=== PATIENT | male | born 1945 | race Caucasian/White ===

== ENCOUNTER 2019-05-27 00:13 | Inpatient (IN) ==
[2019-05-27] MEDS ORDERED: Naloxone 0.4 MG/ML INJ IVP PRN (04:54)
[2019-05-27] MEDS ORDERED: *HR* Dextrose 50 % in Water (Syg) 50 ML SYRINGE IVP PRN (04:56)
[2019-05-27] MEDS ORDERED: Dextrose Gel 15 GM/37.5 ML TUBE PO PRN ×2 (04:56)
[2019-05-27] MEDS ORDERED: D5% in Water 1,000 ML IVC PRN (04:56)
[2019-05-27] MEDS ORDERED: *HR* Heparin 5,000 UNIT/ML VIAL IVP PRN ×2 (05:42)
[2019-05-27] MEDS: Insulin LISPRO 300 UNITS/3 ML VIAL SQ SCH ×3 (06:23→17:22)
[2019-05-27] MEDS: Heparin 25,000 UNIT/250 ML D5W 25,000 UNIT/250 ML IV.SOLN IVC SCH (06:30)
[2019-05-27 06:35] LABS: Hematocrit 48.6 % (37.5-50.1); Mean Corpuscular HGB Conc 32.9 g/dL (31.6-35.5); Mean Corpuscular Hemoglobin 29.1 pg (28.0-33.3); Mean Corpuscular Volume 88.4 fL (83.0-100.0); Mean Platelet Volume 12.1 fL (9.4-12.4); Platelet Count 218 K/mcL (140-400); Red Cell Distribution Width 13.2 % (11.5-14.5)
[2019-05-27 06:55] LABS: BUN/Creatinine Ratio 18 (6-26); Blood Urea Nitrogen 22 mg/dL (8-23); Calcium 9.3 mg/dL (8.6-10.3); Carbon Dioxide 26 mEq/L (23-29); Chloride 95 mEq/L (98-107); Glucose 278 mg/dL (70-105); Osmolality,Calculated 297 (280-300); Potassium 4.3 mEq/L (3.5-5.1); Sodium 137 mEq/L (136-145); eGFR For African Americans > 60 (> 60); eGFR For Non-African Americans 59 (> 60)
[2019-05-27] MEDS ORDERED: Albuterol 2.5 MG/3 ML NEBULIZER IH PRN (07:29)
[2019-05-27] MEDS: Furosemide 40 MG/4 ML VIAL IVP SCH (08:15)
[2019-05-27 09:55] LABS: Heparin anti-factor XA UFH 0.11 IU/mL (0.30-0.70)
[2019-05-27 09:56] LABS: INR 1.1; Prothrombin Time 12.4 Seconds (9.4-12.1)
[2019-05-27] MEDS: Ipratropium/Albuterol Neb 3 ML IH SCH ×3 (10:51→22:57)
[2019-05-27] MEDS ORDERED: Insulin LISPRO 300 UNITS/3 ML VIAL SQ SCH (14:02)
[2019-05-27] MEDS ORDERED: Perflutren Lipid Microsphere 1.3 ML in 0.9 % Sodium Chloride 8.7 ML IVP ONE ×2 (14:11→17:18)
[2019-05-27 14:38] LABS: Adenovirus Not Detected (Not Detect); Coronavirus 229E Not Detected (Not Detect); Coronavirus HKU1 Not Detected (Not Detect); Coronavirus NL63 Not Detected (Not Detect); Coronavirus OC43 Not Detected (Not Detect); Human Metapneumovirus Not Detected (Not Detect); Human Rhinovirus/Enterovirus Not Detected (Not Detect)
[2019-05-27 14:40] LABS: Bordetella Pertussis Not Detected (Not Detect); Chlamydophila pneumoniae Not Detected (Not Detect); Influenza B Not Detected (Not Detect); Mycoplasma pneumoniae Not Detected (Not Detect); Parainfluenza Virus 1 Not Detected (Not Detect); Parainfluenza Virus 2 Not Detected (Not Detect); Parainfluenza Virus 3 Not Detected (Not Detect); Parainfluenza Virus 4 Not Detected (Not Detect); Respiratory Syncytial Virus Not Detected (Not Detect)
[2019-05-27] MEDS: Aspirin 81 MG TAB.CHEW PO SCH (15:16)
[2019-05-27 18:17] LABS: ABG Base Excess 5 mEq/L (-2 to 3); ABG HCO3 31 mEq/L (21-27); ABG Oxygen Saturation 91 % (95-98); ABG PCO2 51 mmHg (35-45); ABG PO2 63 mmHg (85-104); ABG TCO2 33 mEq/L (20-26)
[2019-05-27] MEDS ORDERED: Insulin DETEMIR 100 UNIT/ML X5UNITS SQ SCH (21:00)
[2019-05-28 01:33] LABS: Basophils % 0.3 %; Eosinophils % 0.3 %; Hematocrit 48.7 % (37.5-50.1); Hemoglobin 15.8 g/dL (12.9-16.9); Immature Granulocytes % 0.4 % (0-4); Lymphocytes # 1.3 K/mcL (0.6-4.6); Lymphocytes % 10.2 %; Mean Corpuscular HGB Conc 32.4 g/dL (31.6-35.5); Mean Corpuscular Hemoglobin 29.4 pg (28.0-33.3); Mean Corpuscular Volume 90.5 fL (83.0-100.0); Mean Platelet Volume 11.5 fL (9.4-12.4); Monocytes # 1.1 K/mcL (0.0-1.3); Monocytes % 8.7 %; Neutrophils # 10.4 K/mcL (1.6-8.9); Platelet Count 195 K/mcL (140-400); Red Blood Count 5.38 M/mcL (4.19-5.50); Red Cell Distribution Width 13.1 % (11.5-14.5); Segmented Neutrophils % 80.1 %; White Blood Count 12.9 K/mcL (4.3-11.1)
[2019-05-28 01:46] LABS: Chol/HDL Ratio 3.3 (0-4.9); Magnesium 1.5 mg/dL (1.6-2.6); Potassium 3.7 mEq/L (3.5-5.1)
[2019-05-28 01:47] LABS: Alanine Aminotransferase 13 Units/L (7-52); Albumin 3.8 g/dL (3.5-5.7); Albumin/Globulin Ratio 1.2 (1.1-2.2); Alkaline Phosphatase 85 Units/L (34-104); Aspartate Amino Transferase 38 Units/L (13-39); BUN/Creatinine Ratio 22 (6-26); Bilirubin,Total 0.7 mg/dL (0.3-1.0); Blood Urea Nitrogen 26 mg/dL (8-23); Calcium 9.1 mg/dL (8.6-10.3); Carbon Dioxide 27 mEq/L (23-29); Chloride 97 mEq/L (98-107); Globulin 3.2 g/dL (2.4-3.5); Glucose 140 mg/dL (70-105); Osmolality,Calculated 287 (280-300); Potassium 3.6 mEq/L (3.5-5.1); Sodium 135 mEq/L (136-145); eGFR For African Americans > 60 (> 60); eGFR For Non-African Americans 60 (> 60)
[2019-05-28] MEDS: Ipratropium/Albuterol Neb 3 ML IH SCH ×4 (03:42→23:21)
[2019-05-28] MEDS: Heparin 25,000 UNIT/250 ML D5W 25,000 UNIT/250 ML IV.SOLN IVC SCH (04:27)
[2019-05-28] MEDS: Insulin LISPRO 300 UNITS/3 ML VIAL SQ SCH ×3 (08:02→17:51)
[2019-05-28] MEDS: Aspirin 81 MG TAB.CHEW PO SCH (09:17)
[2019-05-28] MEDS: Furosemide 40 MG/4 ML VIAL IVP SCH (09:17)
[2019-05-28 11:48] LABS: Influenza A Subtype 2009 H1 DETECTED (Not Detect)
[2019-05-28 15:54] LABS: ABG Base Excess 5 mEq/L (-2 to 3); ABG HCO3 30 mEq/L (21-27); ABG Oxygen Saturation 96 % (95-98); ABG PCO2 47 mmHg (35-45); ABG PH 7.42 pH Units (7.32-7.45); ABG PO2 81 mmHg (85-104); ABG TCO2 32 mEq/L (20-26)
[2019-05-28] MEDS ORDERED: Insulin DETEMIR 100 UNIT/ML X5UNITS SQ SCH (21:00)
[2019-05-29 00:24] LABS: Basophils % 0.3 %; Eosinophils % 0.4 %; Hematocrit 45.5 % (37.5-50.1); Hemoglobin 14.7 g/dL (12.9-16.9); Immature Granulocytes % 0.5 % (0-4); Lymphocytes # 1.3 K/mcL (0.6-4.6); Lymphocytes % 16.7 %; Mean Corpuscular HGB Conc 32.3 g/dL (31.6-35.5); Mean Corpuscular Hemoglobin 29.5 pg (28.0-33.3); Mean Corpuscular Volume 91.2 fL (83.0-100.0); Mean Platelet Volume 10.8 fL (9.4-12.4); Monocytes # 0.7 K/mcL (0.0-1.3); Monocytes % 9.6 %; Neutrophils # 5.5 K/mcL (1.6-8.9); Platelet Count 174 K/mcL (140-400); Red Blood Count 4.99 M/mcL (4.19-5.50); Red Cell Distribution Width 12.9 % (11.5-14.5); Segmented Neutrophils % 72.5 %; White Blood Count 7.6 K/mcL (4.3-11.1)
[2019-05-29 00:41] LABS: BUN/Creatinine Ratio 26 (6-26); Blood Urea Nitrogen 27 mg/dL (8-23); Calcium 8.7 mg/dL (8.6-10.3); Carbon Dioxide 28 mEq/L (23-29); Chloride 98 mEq/L (98-107); Glucose 265 mg/dL (70-105); Osmolality,Calculated 290 (280-300); Potassium 3.8 mEq/L (3.5-5.1); Sodium 133 mEq/L (136-145); eGFR For African Americans > 60 (> 60); eGFR For Non-African Americans > 60 (> 60)
[2019-05-29] MEDS: Ipratropium/Albuterol Neb 3 ML IH SCH ×4 (03:59→22:02)
[2019-05-29] MEDS: Insulin LISPRO 300 UNITS/3 ML VIAL SQ SCH ×3 (08:33→16:25)
[2019-05-29] MEDS: Furosemide 40 MG/4 ML VIAL IVP SCH (08:33)
[2019-05-29] MEDS: Aspirin 81 MG TAB.CHEW PO SCH (08:33)
[2019-05-29] MEDS: Famotidine 20 MG TABLET PO SCH (08:33)
[2019-05-29] MEDS: Heparin 25,000 UNIT/250 ML D5W 25,000 UNIT/250 ML IV.SOLN IVC SCH (16:26)
[2019-05-29] MEDS: Insulin DETEMIR 100 UNIT/ML X5UNITS SQ SCH (22:28)
[2019-05-30 02:23] LABS: Basophils # 0.1 K/mcL (0.0-0.2); Basophils % 0.8 %; Eosinophils # 0.1 K/mcL (0.0-0.6); Eosinophils % 1.1 %; Hematocrit 45.8 % (37.5-50.1); Immature Granulocytes % 1.3 % (0-4); Lymphocytes % 30.6 %; Mean Corpuscular HGB Conc 32.8 g/dL (31.6-35.5); Mean Corpuscular Hemoglobin 29.5 pg (28.0-33.3); Mean Corpuscular Volume 90.2 fL (83.0-100.0); Mean Platelet Volume 10.5 fL (9.4-12.4); Monocytes # 0.8 K/mcL (0.0-1.3); Monocytes % 11.9 %; Neutrophils # 3.5 K/mcL (1.6-8.9); Platelet Count 210 K/mcL (140-400); Red Blood Count 5.08 M/mcL (4.19-5.50); Red Cell Distribution Width 12.7 % (11.5-14.5); Segmented Neutrophils % 54.3 %; White Blood Count 6.4 K/mcL (4.3-11.1)
[2019-05-30 02:44] LABS: Alanine Aminotransferase 19 Units/L (7-52); Albumin 3.6 g/dL (3.5-5.7); Albumin/Globulin Ratio 1.2 (1.1-2.2); Alkaline Phosphatase 83 Units/L (34-104); Aspartate Amino Transferase 36 Units/L (13-39); BUN/Creatinine Ratio 21 (6-26); Bilirubin,Total 0.6 mg/dL (0.3-1.0); Blood Urea Nitrogen 22 mg/dL (8-23); Calcium 8.9 mg/dL (8.6-10.3); Carbon Dioxide 30 mEq/L (23-29); Chloride 98 mEq/L (98-107); Globulin 3.1 g/dL (2.4-3.5); Glucose 177 mg/dL (70-105); Osmolality,Calculated 290 (280-300); Potassium 3.5 mEq/L (3.5-5.1); Sodium 136 mEq/L (136-145); Total Protein 6.7 g/dL (6.4-8.9); eGFR For African Americans > 60 (> 60); eGFR For Non-African Americans > 60 (> 60)
[2019-05-30] MEDS: Ipratropium/Albuterol Neb 3 ML IH SCH ×4 (03:41→22:26)
[2019-05-30] MEDS: Insulin LISPRO 300 UNITS/3 ML VIAL SQ SCH ×3 (09:09→17:37)
[2019-05-30] MEDS: Furosemide 40 MG/4 ML VIAL IVP SCH ×2 (09:25→21:53)
[2019-05-30] MEDS: Aspirin 81 MG TAB.CHEW PO SCH (09:25)
[2019-05-30] MEDS: Famotidine 20 MG TABLET PO SCH (09:25)
[2019-05-30] MEDS: Heparin 25,000 UNIT/250 ML D5W 25,000 UNIT/250 ML IV.SOLN IVC SCH (11:28)
[2019-05-30] MEDS: Insulin DETEMIR 100 UNIT/ML X5UNITS SQ SCH (21:53)
[2019-05-31] MEDS ORDERED: Ipratropium/Albuterol Neb 3 ML ONE (04:11)
[2019-05-31] MEDS: Ipratropium/Albuterol Neb 3 ML IH SCH ×4 (04:13→22:52)
[2019-05-31] MEDS: Heparin 25,000 UNIT/250 ML D5W 25,000 UNIT/250 ML IV.SOLN IVC SCH ×2 (04:20→18:26)
[2019-05-31 07:35] LABS: Basophils # 0.1 K/mcL (0.0-0.2); Basophils % 0.8 %; Eosinophils # 0.1 K/mcL (0.0-0.6); Hemoglobin 15.7 g/dL (12.9-16.9); Immature Granulocytes % 1.6 % (0-4); Lymphocytes # 1.9 K/mcL (0.6-4.6); Lymphocytes % 31.1 %; Mean Corpuscular HGB Conc 32.7 g/dL (31.6-35.5); Mean Corpuscular Hemoglobin 29.6 pg (28.0-33.3); Mean Corpuscular Volume 90.4 fL (83.0-100.0); Monocytes # 0.6 K/mcL (0.0-1.3); Neutrophils # 3.3 K/mcL (1.6-8.9); Platelet Count 216 K/mcL (140-400); Red Blood Count 5.31 M/mcL (4.19-5.50); Red Cell Distribution Width 12.7 % (11.5-14.5); Segmented Neutrophils % 54.5 %; White Blood Count 6.1 K/mcL (4.3-11.1)
[2019-05-31] MEDS: Furosemide 40 MG/4 ML VIAL IVP SCH ×2 (08:39→18:02)
[2019-05-31] MEDS: Famotidine 20 MG TABLET PO SCH (08:39)
[2019-05-31] MEDS: Aspirin 81 MG TAB.CHEW PO SCH (08:39)
[2019-05-31] MEDS: Insulin LISPRO 300 UNITS/3 ML VIAL SQ SCH ×3 (08:40→17:48)
[2019-05-31 09:05] LABS: BUN/Creatinine Ratio 21 (6-26); Blood Urea Nitrogen 21 mg/dL (8-23); Carbon Dioxide 29 mEq/L (23-29); Chloride 94 mEq/L (98-107); Glucose 145 mg/dL (70-105); Magnesium 1.6 mg/dL (1.6-2.6); Osmolality,Calculated 288 (280-300); Potassium 3.8 mEq/L (3.5-5.1); Sodium 136 mEq/L (136-145); eGFR For African Americans > 60 (> 60); eGFR For Non-African Americans > 60 (> 60)
[2019-05-31] MEDS ORDERED: 0.9 % Sodium Chloride 1,000 ML ONE ×2 (10:29→11:22)
[2019-05-31] MEDS ORDERED: *HR* Heparin 10,000 UNIT/10 ML VIAL ONE (10:29)
[2019-05-31] MEDS ORDERED: Heparin 1,000 UNITS/500 mL 500 ML ONE (10:29)
[2019-05-31] MEDS ORDERED: ISOVUE-370 200 ML INFUS..BTL ONE (10:29)
[2019-05-31] MEDS ORDERED: Nitroglycerin 1,000 MCG/10 ML VIAL IV ONE (10:29)
[2019-05-31 10:34] LABS: BUN/Creatinine Ratio 20 (6-26); Blood Urea Nitrogen 20 mg/dL (8-23); Calcium 9.2 mg/dL (8.6-10.3); Carbon Dioxide 31 mEq/L (23-29); Chloride 94 mEq/L (98-107); Glucose 161 mg/dL (70-105); Osmolality,Calculated 286 (280-300); Sodium 135 mEq/L (136-145); eGFR For African Americans > 60 (> 60); eGFR For Non-African Americans > 60 (> 60)
[2019-05-31] MEDS ORDERED: *HR* Midazolam HCl 2 MG/2 ML VIAL ONE (11:49)
[2019-05-31] MEDS ORDERED: *HR* FentaNYL (PF) 100 MCG/2 ML VIAL ONE (11:50)
[2019-05-31] MEDS ORDERED: Nitroglycerin Spray 4.9 GM BOTTLE ONE (12:40)
[2019-05-31] MEDS ORDERED: Furosemide 40 MG/4 ML VIAL ONE (12:44)
[2019-05-31] MEDS ORDERED: Acetaminophen 325 MG TABLET PO PRN (14:44)
[2019-05-31] MEDS ORDERED: *HR* Heparin 5,000 UNIT/ML VIAL IVP ONE (17:17)
[2019-05-31] MEDS ORDERED: *HR* Heparin 5,000 UNIT/ML VIAL IVP PRN (17:17)
[2019-05-31] MEDS ORDERED: Ondansetron 4 MG/2 ML VIAL IVP PRN (17:52)
[2019-05-31] MEDS ORDERED: Insulin DETEMIR 100 UNIT/ML X5UNITS SQ SCH (21:00)
[2019-06-01 02:29] LABS: Basophils # 0.1 K/mcL (0.0-0.2); Basophils % 0.8 %; Eosinophils # 0.1 K/mcL (0.0-0.6); Eosinophils % 1.3 %; Hematocrit 50.1 % (37.5-50.1); Hemoglobin 16.5 g/dL (12.9-16.9); Immature Granulocytes % 1.4 % (0-4); Lymphocytes # 2.2 K/mcL (0.6-4.6); Lymphocytes % 30.4 %; Mean Corpuscular HGB Conc 32.9 g/dL (31.6-35.5); Mean Corpuscular Hemoglobin 28.8 pg (28.0-33.3); Mean Corpuscular Volume 87.4 fL (83.0-100.0); Mean Platelet Volume 10.7 fL (9.4-12.4); Monocytes # 0.6 K/mcL (0.0-1.3); Monocytes % 8.5 %; Neutrophils # 4.1 K/mcL (1.6-8.9); Platelet Count 268 K/mcL (140-400); Red Blood Count 5.73 M/mcL (4.19-5.50); Red Cell Distribution Width 12.8 % (11.5-14.5); Segmented Neutrophils % 57.6 %; White Blood Count 7.1 K/mcL (4.3-11.1)
[2019-06-01] MEDS: *HR* Heparin 5,000 UNIT/ML VIAL IVP PRN (02:55)
[2019-06-01 02:57] LABS: BUN/Creatinine Ratio 24 (6-26); Blood Urea Nitrogen 24 mg/dL (8-23); Calcium 9.5 mg/dL (8.6-10.3); Carbon Dioxide 30 mEq/L (23-29); Chloride 95 mEq/L (98-107); Glucose 198 mg/dL (70-105); Osmolality,Calculated 290 (280-300); Potassium 3.8 mEq/L (3.5-5.1); Sodium 135 mEq/L (136-145); eGFR For African Americans > 60 (> 60); eGFR For Non-African Americans > 60 (> 60)
[2019-06-01] MEDS: Ipratropium/Albuterol Neb 3 ML IH SCH ×4 (03:53→22:52)
[2019-06-01] MEDS: Aspirin 81 MG TAB.CHEW PO SCH (08:02)
[2019-06-01] MEDS: Furosemide 40 MG/4 ML VIAL IVP SCH ×2 (08:02→15:32)
[2019-06-01] MEDS: Famotidine 20 MG TABLET PO SCH (08:02)
[2019-06-01] MEDS: Insulin LISPRO 300 UNITS/3 ML VIAL SQ SCH ×3 (08:03→16:09)
[2019-06-01] MEDS: Heparin 25,000 UNIT/250 ML D5W 25,000 UNIT/250 ML IV.SOLN IVC SCH (15:33)
[2019-06-01] MEDS: Insulin DETEMIR 100 UNIT/ML X5UNITS SQ SCH (22:22)
[2019-06-02 03:36] LABS: Hematocrit 46.6 % (37.5-50.1); Hemoglobin 15.4 g/dL (12.9-16.9); Mean Corpuscular Hemoglobin 28.8 pg (28.0-33.3); Mean Corpuscular Volume 87.3 fL (83.0-100.0); Mean Platelet Volume 10.7 fL (9.4-12.4); Platelet Count 250 K/mcL (140-400); Red Blood Count 5.34 M/mcL (4.19-5.50); Red Cell Distribution Width 12.5 % (11.5-14.5); White Blood Count 7.8 K/mcL (4.3-11.1)
[2019-06-02 03:56] LABS: BUN/Creatinine Ratio 24 (6-26); Blood Urea Nitrogen 28 mg/dL (8-23); Calcium 9.1 mg/dL (8.6-10.3); Carbon Dioxide 31 mEq/L (23-29); Chloride 95 mEq/L (98-107); Glucose 177 mg/dL (70-105); Magnesium 1.5 mg/dL (1.6-2.6); Osmolality,Calculated 288 (280-300); Phosphorous 3.2 mg/dL (2.7-4.5); Potassium 3.7 mEq/L (3.5-5.1); Sodium 134 mEq/L (136-145); eGFR For African Americans > 60 (> 60); eGFR For Non-African Americans > 60 (> 60)
[2019-06-02] MEDS: Ipratropium/Albuterol Neb 3 ML IH SCH ×4 (04:00→23:10)
[2019-06-02] MEDS: Aspirin 81 MG TAB.CHEW PO SCH (07:46)
[2019-06-02] MEDS: Insulin LISPRO 300 UNITS/3 ML VIAL SQ SCH ×3 (07:46→16:09)
[2019-06-02] MEDS: Famotidine 20 MG TABLET PO SCH (07:47)
[2019-06-02] MEDS: Furosemide 40 MG/4 ML VIAL IVP SCH (07:48)
[2019-06-02] MEDS: Isosorbide MONOnitrate (24 HR) 30 MG TAB.ER.24H PO SCH (09:42)
[2019-06-02] MEDS: Heparin 25,000 UNIT/250 ML D5W 25,000 UNIT/250 ML IV.SOLN IVC SCH (10:11)
[2019-06-02] MEDS: *HR* Heparin 5,000 UNIT/ML VIAL IVP PRN (17:13)
[2019-06-02] MEDS: Insulin DETEMIR 100 UNIT/ML X5UNITS SQ SCH (21:52)
[2019-06-03] MEDS: Heparin 25,000 UNIT/250 ML D5W 25,000 UNIT/250 ML IV.SOLN IVC SCH ×2 (03:58→21:41)
[2019-06-03] MEDS: Ipratropium/Albuterol Neb 3 ML IH SCH ×4 (04:15→22:04)
[2019-06-03 07:21] LABS: BUN/Creatinine Ratio 21 (6-26); Blood Urea Nitrogen 22 mg/dL (8-23); Carbon Dioxide 34 mEq/L (23-29); Chloride 94 mEq/L (98-107); Glucose 187 mg/dL (70-105); Magnesium 1.7 mg/dL (1.6-2.6); Osmolality,Calculated 292 (280-300); Potassium 3.8 mEq/L (3.5-5.1); Sodium 137 mEq/L (136-145); eGFR For African Americans > 60 (> 60); eGFR For Non-African Americans > 60 (> 60)
[2019-06-03] MEDS: Famotidine 20 MG TABLET PO SCH (10:10)
[2019-06-03] MEDS: Aspirin 81 MG TAB.CHEW PO SCH (10:10)
[2019-06-03] MEDS: Isosorbide MONOnitrate (24 HR) 30 MG TAB.ER.24H PO SCH (10:10)
[2019-06-03] MEDS: Insulin LISPRO 300 UNITS/3 ML VIAL SQ SCH ×3 (10:12→16:17)
[2019-06-03] MEDS ORDERED: Heparin 1,000 UNITS/500 mL 0 ML ONE (12:55)
[2019-06-03] MEDS ORDERED: ISOVUE-370 200 ML INFUS..BTL ONE (12:55)
[2019-06-03] MEDS ORDERED: *HR* Heparin 10,000 UNIT/10 ML VIAL ONE (12:55)
[2019-06-03] MEDS ORDERED: Nitroglycerin 1,000 MCG/10 ML VIAL IV ONE (12:56)
[2019-06-03] MEDS: Furosemide 40 MG/4 ML VIAL IVP SCH (18:16)
[2019-06-03] MEDS: Insulin DETEMIR 100 UNIT/ML X5UNITS SQ SCH (21:42)
[2019-06-04] MEDS: Ipratropium/Albuterol Neb 3 ML IH SCH ×3 (03:52→15:34)
[2019-06-04 07:55] VITALS: BP 145/85
[2019-06-04] MEDS: Aspirin 81 MG TAB.CHEW PO SCH (08:12)
[2019-06-04] MEDS: Isosorbide MONOnitrate (24 HR) 30 MG TAB.ER.24H PO SCH (08:12)
[2019-06-04] MEDS: Insulin LISPRO 300 UNITS/3 ML VIAL SQ SCH ×2 (08:13→12:25)
[2019-06-04] MEDS: Furosemide 40 MG/4 ML VIAL IVP SCH (08:13)
[2019-06-04] MEDS: Famotidine 20 MG TABLET PO SCH (08:13)
[2019-06-04 08:25] LABS: Hematocrit 44.8 % (37.5-50.1); Mean Corpuscular HGB Conc 33.5 g/dL (31.6-35.5); Mean Corpuscular Hemoglobin 29.4 pg (28.0-33.3); Mean Corpuscular Volume 87.8 fL (83.0-100.0); Mean Platelet Volume 10.7 fL (9.4-12.4); Platelet Count 302 K/mcL (140-400); Red Cell Distribution Width 12.2 % (11.5-14.5)
[2019-06-04 08:45] LABS: BUN/Creatinine Ratio 18 (6-26); Blood Urea Nitrogen 20 mg/dL (8-23); Carbon Dioxide 32 mEq/L (23-29); Chloride 95 mEq/L (98-107); Glucose 234 mg/dL (70-105); Osmolality,Calculated 292 (280-300); Potassium 3.8 mEq/L (3.5-5.1); Sodium 136 mEq/L (136-145); eGFR For African Americans > 60 (> 60); eGFR For Non-African Americans > 60 (> 60)
== END 2019-06-04 16:49 | disposition home health service (06) | DRG 250 ==
LOC: 2NENU → SUATTDRO 02:24
PROVIDERS: ADMIT Family Medicine; ATTEND Internal Medicine

== ENCOUNTER 2019-11-15 07:49 | Inpatient (IN) ==
[2019-11-15] MEDS ORDERED: Nitroglycerin 1,000 MCG/10 ML VIAL IV ONE (07:54)
[2019-11-15] MEDS ORDERED: ISOVUE-370 200 ML INFUS..BTL ONE ×2 (07:54→08:01)
[2019-11-15] MEDS ORDERED: 0.9 % Sodium Chloride 2,000 ML ONE (07:54)
[2019-11-15] MEDS ORDERED: Heparin 1,000 UNITS/500 mL 500 ML ONE (07:54)
[2019-11-15] MEDS ORDERED: *HR* Heparin 10,000 UNIT/10 ML VIAL ONE (07:54)
[2019-11-15] MEDS ORDERED: *HR* Bivalirudin 250 MG VIAL IVC ONE (08:07)
[2019-11-15] MEDS ORDERED: *HR* FentaNYL (PF) 100 MCG/2 ML VIAL ONE (08:21)
[2019-11-15] MEDS ORDERED: *HR* Midazolam HCl 2 MG/2 ML VIAL ONE (08:21)
[2019-11-15] MEDS ORDERED: Furosemide 40 MG/4 ML VIAL ONE (09:29)
[2019-11-15 09:42] LABS: ABG Base Excess -3 mEq/L (-2 to 3); ABG HCO3 25 mEq/L (21-27); ABG Oxygen Saturation 84 % (95-98); ABG PCO2 55 mmHg (35-45); ABG PH 7.26 pH Units (7.32-7.45); ABG PO2 56 mmHg (85-104); ABG TCO2 27 mEq/L (20-26)
[2019-11-15] MEDS ORDERED: Perflutren Lipid Microsphere 1.3 ML in 0.9 % Sodium Chloride 8.7 ML IVP ONE ×2 (10:07→12:23)
[2019-11-15] MEDS ORDERED: *HR* Dextrose 50 % in Water (Vial) 50 ML VIAL IVP PRN (10:07)
[2019-11-15] MEDS ORDERED: Nitroglycerin 0.4 MG TAB.SUBL SL PRN (10:07)
[2019-11-15] MEDS ORDERED: Dextrose Gel 15 GM/37.5 ML TUBE PO PRN ×2 (10:07)
[2019-11-15] MEDS ORDERED: D5% in Water 1,000 ML IVC PRN (10:07)
[2019-11-15] MEDS ORDERED: *HR* Metoprolol 5 MG/5 ML VIAL IVP ONE ×2 (10:14)
[2019-11-15] MEDS ORDERED: Metoprolol XL (24 HR) Succ 25 MG TAB.ER.24H PO SCH (10:15)
[2019-11-15] MEDS ORDERED: Naloxone 0.4 MG/ML INJ IVP PRN (10:17)
[2019-11-15] MEDS ORDERED: Ondansetron 4 MG/2 ML VIAL IVP PRN (10:17)
[2019-11-15] MEDS ORDERED: Acetaminophen 325 MG TABLET PO PRN (10:17)
[2019-11-15 10:43] LABS: ABG Base Excess 0 mEq/L (-2 to 3); ABG HCO3 28 mEq/L (21-27); ABG Oxygen Saturation 91 % (95-98); ABG PCO2 56 mmHg (35-45); ABG PH 7.31 pH Units (7.32-7.45); ABG PO2 68 mmHg (85-104); ABG TCO2 30 mEq/L (20-26)
[2019-11-15 12:28] LABS: Estimated Average Glucose 206 mg/dl
[2019-11-15] MEDS: Insulin LISPRO 300 UNITS/3 ML VIAL SQ SCH ×2 (12:28→17:03)
[2019-11-15] MEDS ORDERED: 0.9 % Sodium Chloride 500 ML ONE (13:59)
[2019-11-15] MEDS ORDERED: *HR* Atropine Sulfate 1 MG/10 ML SYRINGE ONE (13:59)
[2019-11-15] MEDS: *HR* Heparin 5,000 UNIT/ML VIAL SQ SCH ×2 (17:02→23:53)
[2019-11-16 03:48] LABS: Basophils % 0.2 %; Eosinophils % 0.1 %; Hematocrit 47.8 % (37.5-50.1); Hemoglobin 15.9 g/dL (12.9-16.9); Immature Granulocytes % 0.5 % (0-4); Lymphocytes # 1.1 K/mcL (0.6-4.6); Lymphocytes % 8.1 %; Mean Corpuscular HGB Conc 33.3 g/dL (31.6-35.5); Mean Corpuscular Hemoglobin 29.8 pg (28.0-33.3); Mean Corpuscular Volume 89.5 fL (83.0-100.0); Mean Platelet Volume 10.7 fL (9.4-12.4); Monocytes # 1.3 K/mcL (0.0-1.3); Monocytes % 9.7 %; Neutrophils # 10.7 K/mcL (1.6-8.9); Platelet Count 228 K/mcL (140-400); Red Blood Count 5.34 M/mcL (4.19-5.50); Segmented Neutrophils % 81.4 %; White Blood Count 13.1 K/mcL (4.3-11.1)
[2019-11-16 04:19] LABS: BUN/Creatinine Ratio 20 (6-26); Blood Urea Nitrogen 19 mg/dL (8-23); Calcium 8.7 mg/dL (8.6-10.3); Carbon Dioxide 28 mEq/L (23-29); Chloride 100 mEq/L (98-107); Chol/HDL Ratio 3.3 (0-4.9); Cholesterol 129 mg/dL (< 200); Glucose 261 mg/dL (70-105); HDL Cholesterol 39 mg/dL (40-59); LDL Cholesterol,Calculated 67 mg/dL (< 100); Osmolality,Calculated 291 (280-300); Potassium 4.1 mEq/L (3.5-5.1); Sodium 135 mEq/L (136-145); Triglycerides 114 mg/dL (< 150); Troponin I > 73.00 ng/mL (< 0.04); eGFR For African Americans > 60 (> 60); eGFR For Non-African Americans > 60 (> 60)
[2019-11-16 04:23] LABS: Thyroid Stimulating Hormone 1.199 mcIU/mL (0.340-5.600)
[2019-11-16] MEDS: Insulin LISPRO 300 UNITS/3 ML VIAL SQ SCH ×2 (08:20→17:23)
[2019-11-16] MEDS ORDERED: gemfibroziL 600 MG TABLET PO SCH (09:00)
[2019-11-16] MEDS ORDERED: Aspirin 81 MG TAB.CHEW PO SCH (09:00)
[2019-11-16] MEDS ORDERED: Insulin DETEMIR 100 UNIT/ML X5UNITS SQ SCH ×2 (09:00→21:00)
[2019-11-16] MEDS ORDERED: Pantoprazole 40 MG VIAL IVP SCH (09:00)
[2019-11-16] MEDS ORDERED: Furosemide 40 MG TABLET PO SCH (09:00)
[2019-11-16] MEDS ORDERED: Metoprolol XL (24 HR) Succ 25 MG TAB.ER.24H PO SCH (09:00)
[2019-11-16] MEDS: *HR* Heparin 5,000 UNIT/ML VIAL SQ SCH ×3 (10:33→21:02)
[2019-11-16] MEDS ORDERED: Acetaminophen 325 MG TABLET PO PRN (11:10)
[2019-11-16] MEDS ORDERED: Dextrose Gel 15 GM/37.5 ML TUBE PO PRN ×2 (11:10)
[2019-11-16] MEDS ORDERED: *HR* Dextrose 50 % in Water (Vial) 50 ML VIAL IVP PRN (11:10)
[2019-11-16] MEDS ORDERED: Nitroglycerin 0.4 MG TAB.SUBL SL PRN (11:10)
[2019-11-16] MEDS ORDERED: Ondansetron 4 MG/2 ML VIAL IVP PRN (11:10)
[2019-11-16] MEDS ORDERED: Naloxone 0.4 MG/ML INJ IVP PRN (11:10)
[2019-11-16] MEDS ORDERED: D5% in Water 1,000 ML IVC PRN (11:10)
[2019-11-16] MEDS ORDERED: Insulin LISPRO 300 UNITS/3 ML VIAL SQ SCH (11:30)
[2019-11-16] MEDS: gemfibroziL 600 MG TABLET PO SCH (17:22)
[2019-11-16] MEDS: Insulin DETEMIR 100 UNIT/ML X5UNITS SQ SCH (21:16)
[2019-11-17] MEDS: *HR* Heparin 5,000 UNIT/ML VIAL SQ SCH ×3 (05:11→20:21)
[2019-11-17] MEDS: Aspirin 81 MG TAB.CHEW PO SCH (08:05)
[2019-11-17] MEDS: gemfibroziL 600 MG TABLET PO SCH ×2 (08:05→16:44)
[2019-11-17] MEDS: Furosemide 40 MG TABLET PO SCH (08:06)
[2019-11-17] MEDS: Insulin LISPRO 300 UNITS/3 ML VIAL SQ SCH ×3 (08:09→16:45)
[2019-11-17] MEDS ORDERED: Metoprolol XL (24 HR) Succ 25 MG TAB.ER.24H PO ONE (09:00)
[2019-11-17] MEDS ORDERED: Metoprolol XL (24 HR) Succ 25 MG TAB.ER.24H PO SCH (09:00)
[2019-11-17] MEDS ORDERED: Insulin DETEMIR 100 UNIT/ML X5UNITS SQ SCH (09:00)
[2019-11-17] MEDS: Insulin DETEMIR 100 UNIT/ML X5UNITS SQ SCH (20:21)
[2019-11-18] MEDS: *HR* Heparin 5,000 UNIT/ML VIAL SQ SCH ×3 (05:37→20:53)
[2019-11-18] MEDS: Insulin LISPRO 300 UNITS/3 ML VIAL SQ SCH ×3 (08:27→16:30)
[2019-11-18] MEDS: Furosemide 40 MG TABLET PO SCH (08:28)
[2019-11-18] MEDS: Aspirin 81 MG TAB.CHEW PO SCH (08:28)
[2019-11-18] MEDS: gemfibroziL 600 MG TABLET PO SCH ×2 (08:28→16:40)
[2019-11-18] MEDS: Metoprolol XL (24 HR) Succ 50 MG TAB.ER.24H PO SCH (08:29)
[2019-11-18 09:43] LABS: BUN/Creatinine Ratio 25 (6-26); Blood Urea Nitrogen 29 mg/dL (8-23); Calcium 9.1 mg/dL (8.6-10.3); Carbon Dioxide 33 mEq/L (23-29); Chloride 99 mEq/L (98-107); Glucose 91 mg/dL (70-105); Osmolality,Calculated 291 (280-300); Potassium 3.6 mEq/L (3.5-5.1); Sodium 138 mEq/L (136-145); eGFR For African Americans > 60 (> 60); eGFR For Non-African Americans > 60 (> 60)
[2019-11-18] MEDS: Insulin DETEMIR 100 UNIT/ML X5UNITS SQ SCH ×2 (13:32→20:53)
[2019-11-19] MEDS: *HR* Heparin 5,000 UNIT/ML VIAL SQ SCH (05:19)
[2019-11-19] MEDS: Furosemide 40 MG TABLET PO SCH (08:55)
[2019-11-19] MEDS: gemfibroziL 600 MG TABLET PO SCH (08:55)
[2019-11-19] MEDS: Insulin LISPRO 300 UNITS/3 ML VIAL SQ SCH ×2 (08:56→12:35)
[2019-11-19] MEDS: Aspirin 81 MG TAB.CHEW PO SCH (08:56)
[2019-11-19] MEDS: Metoprolol XL (24 HR) Succ 50 MG TAB.ER.24H PO SCH (08:56)
[2019-11-19] MEDS: Insulin DETEMIR 100 UNIT/ML X5UNITS SQ SCH (08:56)
[2019-11-19 12:23] VITALS: BP 122/78
== END 2019-11-19 13:19 | disposition home or self-care (01) | DRG 246 ==
LOC: ICNU 08:39 → SUATTDRO 08:39 → 2ANU 11-16 18:26
PROVIDERS: ADMIT Internal Medicine Interventional Cardiology; ATTEND Internal Medicine Interventional Cardiology